=== PATIENT | male | born 2000 | race Caucasian/White ===

== ENCOUNTER 2019-01-10 14:55 | Emergency (ER) | payer SELFPAY ==
--- NOTE | 2019-01-10 15:46 | RADIOLOGY REPORT (SQ) ---
EXAM DESCRIPTION: FINGER LEFT COMPLETED DATE/TIME: 01/10/2019 3:33 pm REASON FOR STUDY: nail in finger COMPARISON: None. NUMBER OF VIEWS: Three views. TECHNIQUE: AP, lateral, and oblique images acquired of the left thumb. LIMITATIONS: None. FINDINGS: MINERALIZATION: Normal. BONES: No definite acute bony abnormality. SOFT TISSUES: There is a nail overlying the volar aspect of the 1st digit at the level of the interph alangeal joint. No definite osseous involvement. OTHER: No other significant finding. IMPRESSION: Nail overlying the volar aspect of the 1st digit at the level of the interphalangeal tanner nt. No definite osseous involvement. TECHNICAL DOCUMENTATION: JOB ID: [id number] [employer]- All Rights Reserved Reading location - IP/workstation name: [email or web address]
[2019-01-10] MEDS ORDERED: LIDOCAINE 1% INJ-PF (10 MG/ML) 30 ML SDV INJ ONE (15:54)
[2019-01-10] MEDS ORDERED: HYDROCODONE/ACETAMINOPHEN 10-325 MG TABLET PO ONE (16:02)
[2019-01-10] MEDS ORDERED: DIPH/PERTUSS(ACELL)/TETANUS VAC/PF 0.5 ML SYR (>=10YO) IM ONE (16:02)
--- NOTE | 2019-01-10 16:03 | ER Document Report ---
HPI - HPI Time Seen by Provider: 01/10/19 15:22 Onset: Just prior to arrival Pain Level: 5 Context: Patient is a 18-year-old male who presents emergency department with a chief complaint of a nail stuck in his left thumb. He was using a nail gun and a nail went through his left thumb. He was helping put a checkup at his friend's house. This happened about 15 minutes prior to arrival to the emergency department. He attempted to pull the nail out himself, but stated that the pain was too intense. He states that it is a sore pain. He is unsure as to when his last tetanus shot was. Denies any alcohol use, but does admit to smoking ma rijuana this morning. - ROS Systems Reviewed and Negative: Yes All other systems reviewed and negative - RESPIRATORY Respiratory: REPORTS: Trouble Breathing - MUSCULOSKELETAL Musculoskeletal: REPORTS: Extremity pain - DERM Skin Color: Normal Past Medical History - General Information source: Patient - Social History Smoking Status: Never Smoker Frequency of alcohol use: None Drug Abuse: Marijuana Family History: Reviewed & Not Pertinent Patient has suicidal ideation: No Patient has homicidal ideation: No Renal/ Medical History: Denies: Hx Peritoneal Dialysis Vertical Provider Document - INFECTION CONTROL TRAVEL OUTSIDE OF THE [place] IN LAST 30 DAYS: No - HEENT HEENT: Atraumatic - NECK Neck: Normal Inspection - RESPIRATORY Respiratory: No Respiratory Distress - CARDIOVASCULAR Cardiovascular: Regular Rate Pulses: Normal: Radial - MUSCULOSKELETAL/EXTREMETIES Musculoskeletal/Extremeties: FROM - NEURO Level of Consciousness: Awake, Alert, Appropriate - DERM Integumentary: Warm, Dry Notes: Hardware nail and left distal thumb. See x-rays Course - Re-evaluation Re-evalutation: 01/10/19 16:06 Patient's x-ray thankfully does not show any involvement with the bone. Digital block was done and the nail was removed. The patient tolerated the procedure well. He will be started on prophylactic antibiotics. I do not suspect patient has a tendon injury, as he has full range of motion pre-and postprocedure. Verbal discharge instructions were given to the patient. They verbalized understanding. They are stable for discharge. - Vital Signs Vital signs: Temp Pulse Resp BP Pulse Ox 98.3 F 75 18 122/65 100 01/10/19 15:15 01/10/19 15:15 01/10/19 15:15 01/10/19 15:15 01/10/19 15:15 Procedures - Laceration/Wound Repair Left Distal Finger Thumb Wound length (cm): 1 - Puncture wounds; less than 1 cm Wound's Depth, Shape: Into muscle Laceration pre-procedure: Sterile PPE donned, Shur-Clens applied Anesthetic type: 1% Lidocaine Wound explored: Clean, Foreign body removed - Hardware nail Post-procedure wound care: Sterile dressing applied Post-procedure NV exam normal: Yes Complications: No Discharge - Discharge Clinical Impression: Finger pain, left Condition: Stable Disposition: HOME, SELF-CARE Additional Instructions: You were seen today in the emergency department for a nail that was stuck in your left thumb. It was removed here in the emergency department. You have been started on antibiotics to prevent any infection. Please take all your antibiotic as prescribed. You may take Motrin 600 mg and Tylenol 1000 mg every 6 hours as needed for your pain. If you develop redness, swelling to the area, or any symptoms that are worrisome to you, please return to the emergency department. Prescriptions: Doxycycline Hyclate 100 mg PO BID #14 capsule
[2019-01-10 17:22] VITALS: BP 145/64
== END 2019-01-10 17:22 | disposition home or self-care (01) ==
LOC: ER 14:55
DX: S61.042A Puncture wound with foreign body of left thumb without damage to nail, initial encounter (principal); W29.4XXA Contact with nail gun, initial encounter; F12.10 Cannabis abuse, uncomplicated
CPT/HCPCS: 99283; 90471; 73140; 90715; 64450; J3490